=== PATIENT | female | born 1990 | race Asian ===

== ENCOUNTER 2023-07-20 16:46 | Day surgery (SDC) | payer OTHER ==
[2023-07-20 17:14] VITALS: BMI 42.2
[2023-07-20 17:49] LABS: Fetal Membranes Rupture No Membranes Rupture (No Rupture)
== END 2023-07-20 18:00 | disposition home or self-care (01) ==
LOC: CSHLD/OP 16:46
PROVIDERS: ATTEND Obstetrics & Gynecology
DX: O47.1 False labor at or after 37 completed weeks of gestation (principal); Z03.71 Encounter for suspected problem with amniotic cavity and membrane ruled out; O99.283 Endocrine, nutritional and metabolic diseases complicating pregnancy, third trimester; O24.419 Gestational diabetes mellitus in pregnancy, unspecified control; E03.9 Hypothyroidism, unspecified; E28.2 Polycystic ovarian syndrome; Z79.890 Hormone replacement therapy; Z79.84 Long term (current) use of oral hypoglycemic drugs; Z79.899 Other long term (current) drug therapy; Z3A.38 38 weeks gestation of pregnancy
CPT/HCPCS: 84112; 99283

== ENCOUNTER 2023-07-25 05:33 | Inpatient (IN) | payer OTHER ==
[2023-07-25] MEDS ORDERED: Methylergonovine 0.2 MG/ML VIAL IM PRN (05:39)
[2023-07-25] MEDS ORDERED: fentaNYL 50 mcg/mL 1 mL Vial SLOW IVP PRN (05:39)
[2023-07-25] MEDS ORDERED: hydrALAZINE 20 MG/ML VIAL SLOW IVP PRN (05:39)
[2023-07-25] MEDS ORDERED: Diphenoxylate HCl/Atropine Tablet PO PRN ×2 (05:39)
[2023-07-25] MEDS ORDERED: Oxytocin 30 units/NS 500 ML 500 ML IV SCH (05:39)
[2023-07-25] MEDS ORDERED: Promethazine HCl 25 MG/ML VIAL IM PRN (05:39)
[2023-07-25] MEDS ORDERED: Lidocaine 1% (PF) 30 ML VIAL SC PRN (05:39)
[2023-07-25] MEDS ORDERED: Misoprostol 200 MCG TAB PR PRN (05:39)
[2023-07-25] MEDS ORDERED: Acetaminophen 500 MG TAB PO PRN (05:39)
[2023-07-25] MEDS ORDERED: Carboprost 250 MCG/ML AMP IM PRN (05:39)
[2023-07-25] MEDS ORDERED: Ondansetron PF 4 MG/2 ML Vial IVP PRN (05:39)
[2023-07-25] MEDS ORDERED: Tranexamic Acid 1,000 MG/10 ML VIAL IVP PRN (05:39)
[2023-07-25 05:40] VITALS: BMI 42.4
[2023-07-25] MEDS: Misoprostol 100 MCG TAB VAG SCH (06:45)
[2023-07-25 06:51] LABS: Hemoglobin 11.6 g/dL (12.0-15.5); Mean Corpuscular HGB CONC 34.1 g/dL (32.0-36.0); Mean Corpuscular Hemoglobin 26.7 pg (27.0-33.0); Mean Corpuscular Volume 78.2 fL (81.6-98.3); Platelet Count 150 10x3/uL (150-450); RBC Distribution Width 20.9 % (11.5-14.5); Red Blood Cell (RBC) Count 4.35 10x6/uL (3.90-5.03); White Blood Cell (WBC) Count 9.9 10x3/uL (3.5-10.5)
[2023-07-25] MEDS: Penicillin G Potassium 5 MILL.UNITS in Sodium Chloride 0.9% 100 ML IVPB SCH (07:00)
[2023-07-25 07:18] LABS: Syphilis Antibody Nonreactive (Nonreactive); Syphilis Antibody Index 0.04 S/CO (<1.00 Non-Reactive)
[2023-07-25 07:20] LABS: HBsAg Index 0.15 S/CO (0-0.99); Hep B Surf Ag - L&D Non-Reactive S/CO (NonReactive)
[2023-07-25] MEDS ORDERED: Bupivacaine 0.25% HCL 30 ML VIAL ONE (08:00)
[2023-07-25] MEDS: Penicillin G 2.5 MILL.units 2.5 MILL.UNITS in Premix 1 BAG IVPB SCH (11:18)
[2023-07-25] MEDS: Oxytocin 30 units/NS 500 ML 500 ML IV SCH (18:22)
[2023-07-26] MEDS: Lactated Ringer's 1,000 ML IV SCH (00:53)
[2023-07-26] MEDS: fentaNYL/Ropivacaine Epidural 100 ML ONE (02:24)
[2023-07-26] MEDS ORDERED: Ondansetron PF 4 MG/2 ML Vial IVP PRN ×3 (02:31→07:09)
[2023-07-26] MEDS ORDERED: Moisturizing Cream (Eucerin) 113 GM JAR TOP PRN ×2 (02:31→07:09)
[2023-07-26] MEDS ORDERED: ePHEDrine Sulfate 50 MG/10 ML VIAL SLOW IVP PRN (02:31)
[2023-07-26] MEDS ORDERED: Lactated Ringer's 500 ML IV PRN (02:31)
[2023-07-26] MEDS ORDERED: Naloxone HCl 0.4 mg/ml Vial IVP PRN ×4 (02:31→07:09)
[2023-07-26] MEDS ORDERED: diphenhydrAMINE 50 MG/ML VIAL IVP PRN ×2 (02:31→07:09)
[2023-07-26] MEDS ORDERED: Acetaminophen 325 MG TAB PO PRN (02:31)
[2023-07-26] MEDS ORDERED: Promethazine HCl 25 MG/ML VIAL IM PRN ×2 (02:31→07:09)
[2023-07-26] MEDS ORDERED: Communication Order-Pharmacy FS SCH ×2 (02:45→07:15)
[2023-07-26] MEDS ORDERED: fentaNYL 2 mcg/Ropivacaine 0.2% Epidural 100 ML CADD EPIDURAL SCH (02:45)
[2023-07-26] MEDS: CEFAZOLIN 2 GM VIAL ONE (06:01)
[2023-07-26] MEDS ORDERED: diphenhydrAMINE 25 MG CAP PO PRN (06:12)
[2023-07-26] MEDS ORDERED: Bicitra 30 ML UDCUP PO PRN (06:12)
[2023-07-26] MEDS ORDERED: hydrALAZINE 20 MG/ML VIAL SLOW IVP PRN (06:12)
[2023-07-26] MEDS ORDERED: Simethicone Chewable 80 MG TAB PO PRN (06:12)
[2023-07-26] MEDS ORDERED: Lanolin Ointment 7 GM TUBE TOP PRN (06:12)
[2023-07-26] MEDS ORDERED: Famotidine/PF 20 mg/2ml Vial SLOW IVP PRN (06:12)
[2023-07-26] MEDS ORDERED: CEFAZOLIN 2 GM in Sodium Chloride 0.9% 100 ML IVPB SCH (06:15)
[2023-07-26] MEDS ORDERED: Naloxone HCl 0.4 mg/ml Vial IV PRN (07:09)
[2023-07-26] MEDS ORDERED: fentaNYL 50 mcg/mL 1 mL Vial SLOW IVP PRN (07:09)
[2023-07-26] MEDS ORDERED: Meperidine HCl/PF 25 MG (1 mL) VIAL SLOW IVP PRN (07:09)
[2023-07-26 11:10] LABS: Analyzer IN Cardio CS NICU; RapidComm Collect By CBN; pH (Cord, venous) 7.335 (7.250-7.350)
[2023-07-26 11:12] LABS: Analyzer IN Cardio CS NICU; RapidComm Collect By CBN
[2023-07-26] MEDS: Ketorolac Tromethamine 30 MG (1 mL) VIAL IVP PRN (14:16)
[2023-07-26] MEDS: Dexamethasone 4 mg/ml Vial ONE (18:26)
[2023-07-26] MEDS: Boostrix 0.5 ML (Tdap) VIAL (>/=7 yrs of age) IM ONE (18:26)
[2023-07-26] MEDS: Morphine PF 10 MG/10 ML VIAL ONE (18:26)
[2023-07-26] MEDS: Azithromycin 500 MG VIAL ONE (18:26)
[2023-07-26] MEDS: Chloroprocaine 3% PF 20 ML VIAL ONE (18:26)
[2023-07-26] MEDS: Ondansetron PF 4 MG/2 ML Vial ONE (18:26)
[2023-07-26] MEDS: Dexmedetomidine 200 MCG/2 ML VIAL ONE (18:26)
[2023-07-26] MEDS: Promethazine HCl 25 MG/ML VIAL ONE (18:26)
[2023-07-26] MEDS: Oxytocin 10 UNITS/ML VIAL ONE (18:27)
[2023-07-26] MEDS: Docusate 100 MG CAP PO SCH (18:27)
[2023-07-26] MEDS: Ketorolac Tromethamine 30 MG (1 mL) VIAL ONE (18:27)
[2023-07-26] MEDS: Ferrous Sulfate 325 MG TAB PO SCH (18:27)
[2023-07-26] MEDS ORDERED: HYDROcodone/Acetaminophen 5/325 mg Tablet PO PRN (21:15)
[2023-07-27 04:15] LABS: Hematocrit 27.9 % (34.9-44.5); Hemoglobin 9.2 g/dL (12.0-15.5); Mean Corpuscular Hemoglobin 26.3 pg (27.0-33.0); Mean Corpuscular Volume 79.7 fL (81.6-98.3); Platelet Count 124 10x3/uL (150-450); RBC Distribution Width 21.2 % (11.5-14.5); White Blood Cell (WBC) Count 9.3 10x3/uL (3.5-10.5)
[2023-07-27] MEDS: Ketorolac Tromethamine 30 MG (1 mL) VIAL IVP SCH (05:09)
[2023-07-27] MEDS: HYDROcodone/Acetaminophen 5/325 mg Tablet PO PRN (08:48)
[2023-07-27] MEDS: Ibuprofen 800 MG TAB PO SCH (21:46)
[2023-07-28] MEDS: Milk Of Magnesia 30 ML UDCUP PO PRN (17:39)
[2023-07-28] MEDS: Bisacodyl 10 MG SUPP PR PRN (21:30)
[2023-07-29 08:01] VITALS: BP 128/88; TEMP 98.1
== END 2023-07-29 14:00 | disposition home or self-care (01) | DRG 788 ==
LOC: CSHLD 05:33 → CSHPP 07-26 10:05
PROVIDERS: ADMIT Obstetrics & Gynecology; ATTEND Obstetrics & Gynecology
PROC: 10D00Z1 Extraction of Products of Conception, Low, Open Approach (ICD-10-PCS; principal; 2023-07-26)
DX: O76 Abnormality in fetal heart rate and rhythm complicating labor and delivery (principal); Z3A.39 39 weeks gestation of pregnancy; Z37.0 Single live birth; O99.824 Streptococcus B carrier state complicating childbirth; O69.81X0 Labor and delivery complicated by cord around neck, without compression, not applicable or unspecified; O99.284 Endocrine, nutritional and metabolic diseases complicating childbirth; E03.9 Hypothyroidism, unspecified; E28.2 Polycystic ovarian syndrome
CPT/HCPCS: 36415; 51702; 82805; 85027; 86780; 86850; 86900; 86901; 87340; J0665; J1100; J1885; J2274; J2401; J2405; J2540; J2550; J2590; J3490; J7120